=== PATIENT | male | born 1950 | race Caucasian/White ===

== ENCOUNTER 2018-01-27 21:47 | Emergency (ER) | payer MEDICARE, BC ==
[~2018-01-27] VITALS: Ht 180.3 cm; Wt 126.8 kg
[~2018-01-27 21:47] MED LIST: ACCOLATE10 MG; ALLEGRA-D 1212 HOUR PO; ALLOPURINOL300 MG PO; ALTACE10 M1 PO; ALTACE10 MG PO; ATENOLOL100 MG PO; AUGMENTIN500TAB PO; AUGMENTIN875TAB PO; CARDURA1 MG PO; CARISOPRODOL350 MG PO; CEPHALEXIN500 MG PO; CLONIDINE0.1 MG PO; CYCLOBENZAPR10 MG PO; DICLOFENAC SODI75 MG PO; DICLOFENAC75 MG PO; FARXIGA5 MG PO; FLEXERIL5 MG PO; FLONASE NASAL50 MCG; GLIPIZIDE10 M2 PO; GLIPIZIDE5 MG PO; HCTZ; HCTZ PO; JANUVIA100 MG PO; LOPRESSOR 550 MG/TAB PO; LOPRESSOR25 MG PO; LOTRISONE TOP; MAXZIDE-2537.5 MG/TA PO; MEDDOSEPAK PO; MELOXICAM15 MG PO; MELOXICAM7.5 MG PO; METFORMIN500 MG PO; METOPROL TAR25 MG PO; METOPROLOL TART50 MG OR; MOTRIN800 MG OR; ONE TOUCH ULTRA 100 XX; ONE TOUCH ULTRA 50 XX; ONGLYZA5 MG PO; PLAVIX75 MG PO; PRANDIN1 MG PO; PRAVACHOL20 MG PO; PRAVASTATIN20 MG; PRAVASTATIN20 MG PO; PRAVASTATIN40 MG PO; PREDNISONE20 MG PO; RAMIPRIL2.5 MG PO; SOMA350 MG PO; TIZANIDINE HCL4 M1 PO; TRIAMT; TRIAMT PO; ZYRTEC-D ALG PO
[2018-01-27 22:42] LABS: HEMATOCRIT 50.4 % (39.0-50.0); HEMOGLOBIN 16.4 g/dl (14.0-18.0); IMMATURE GRANULOCYTES 0.3 % (0.0-1.0); MEAN CELL VOLUME 98.2 fL CALC (80.0-100.0); MEAN CORPUSCULAR HGB CONC 32.5 g/L CALC (32.0-36.0); NEUT# 7.59 thou/uL (1.82-7.42); RED BLOOD COUNT 5.13 mill/uL (4.70-6.10); RED CELL DISTRI WIDTH 12.6 % (11.5-15.5)
[2018-01-27 22:55] LABS: ALBUMIN 4.2 g/dL (3.2-5.0); BILIRUBIN, TOTAL 0.5 mg/dL (0.0-1.4); CREATININE 1.8 mg/dL (0.7-1.3); POTASSIUM 5.3 mmol/l (3.5-5.1); TOTAL PROTEIN 6.9 g/dL (6.3-8.2)
[2018-01-27] MEDS ORDERED: FLEXERIL PO (23:13)
[2018-01-27] MEDS ORDERED: ULTRAM50 M1 PO (23:13)
[2018-01-27 23:29] VITALS: BP 150/69
== END 2018-01-27 23:30 | disposition home or self-care (01) ==
LOC: ED 21:47
PROVIDERS: Emergency Medicine
DX: R51 Headache (principal); I11.9 Hypertensive heart disease without heart failure; M54.2 Cervicalgia; E11.9 Type 2 diabetes mellitus without complications; G89.29 Other chronic pain; M54.9 Dorsalgia, unspecified

== ENCOUNTER 2018-08-29 08:54 | Observation (INO) | payer MEDICARE, OTHER ==
[~2018-08-29] VITALS: Ht 180.3 cm; Wt 123.2 kg
[~2018-08-29 08:54] MED LIST changes: +FLEXERIL PO; +ULTRAM50 M1 PO
--- NOTE | 2018-08-29 08:54 | NUR ---
TO ROOM 13 VIA EMS
--- NOTE | 2018-08-29 09:00 | NUR ---
PT C/O 3 DAY HX OF HYPERTENSION. PT DENIES ANY CP AT THIS TIME OR SOB. PT REPORTS DULL HEADACHE TO OCCIPITAL AREA OF HEAD. PT DENIES ANY DIZZINESS OR BLURRY VISION AT THIS TIME. BP 212/86 AT THIS TIME. BILATERAL LS CLEAR AT THIS TIME. PT RESTING COMFORTABLY IN STRETCHER IN NAD. CALL MCCURDY WTIHIN REACH.
[2018-08-29 09:20] LABS: HEMATOCRIT 51.2 % (39.0-50.0); IMMATURE GRANULOCYTES 0.5 % (0.0-5.0); MEAN CELL VOLUME 96.6 fL CALC (80.0-100.0); MEAN CORPUSCULAR HGB 32.1 pG CALC (26.0-32.0); MEAN CORPUSCULAR HGB CONC 33.2 g/L CALC (32.0-36.0); NEUT# 5.44 thou/uL (1.82-7.42); RED BLOOD COUNT 5.3 mill/uL (4.70-6.10); RED CELL DISTRI WIDTH 12.7 % (11.5-15.5)
--- NOTE | 2018-08-29 09:26 | NUR ---
PT MEDICATED PER ORDERED FOR BP 211/86.
[2018-08-29 09:39] LABS: ANION GAP 16 (6-22 (CALC)); BUN 29 mg/dL (8-23); BUN/CREATININE RATIO 16 (12-20 (CALC)); CARBON DIOXIDE 23 mmol/l (22-30); CHLORIDE 104 mmol/l (95-108); CREATININE 1.8 mg/dL (0.7-1.3); GFR 37 ML/MIN (>=60 (CALC)); GFR FOR AFR.AMER. 45 ML/MIN (>=60 (CALC)); POTASSIUM 5.1 mmol/l (3.5-5.1); SODIUM 138 mmol/l (137-146)
--- NOTE | 2018-08-29 10:00 | NUR ---
PT RETURNED FROM CT SCAN AND IS RESTING COMFORTABLY IN STRETCHER IN NAD. PT DENIES ANY NEEDS.
[2018-08-29] MEDS ORDERED: GLIPIZIDE5 MG PO (10:44)
--- NOTE | 2018-08-29 10:45 | NUR ---
PT AMBUALTED TO BATHROOM WITH A STEADY GAIT. PT DENIES ANY PAIN IN HIS HEAD AT THIS TIME AND IS AWARE OF PENDING RESULTS. CALL MCCURDY WITHIN REACH.
[2018-08-29] MEDS ORDERED: PRANDIN1 MG PO (10:46)
--- NOTE | 2018-08-29 10:57 | NUR ---
Chemistry Associate spoke with Dr. Morales and advised that there is no MCG/INDICIA criteria to darrell Patient - MD states he spoke with Dr. Reed - Patient's PCP - and Dr. Reed stated he wanted Patient admitted. Dr. Morales stated he would call Dr. Reed back and leave the decision to admit up to Dr. Reed - Alberto, bond underwriter stated that there was no criteria to admit Patient, but that it was up to the MD to decide if Patient should be admitted.
--- NOTE | 2018-08-29 11:01 | NUR ---
Received call back from Dr. Carmen james stated he just spoke with Dr. Reed and Dr. Reed is afraid Patient may have a stroke if not admitted under observation, so Patient will be admitted under observational status
--- NOTE | 2018-08-29 11:09 | NUR ---
MD AT BEDSIDE TO DISCUSS PLAN FOR ADMISSION.
--- NOTE | 2018-08-29 11:35 | NUR ---
INITIAL ADMISSION ORDERS OBTAINED FROM DR MCCORMACK BY PHONE AND READ BACK. HE WILL PLACE FURTHER ORSERS
--- NOTE | 2018-08-29 11:37 | NUR ---
CALL PLACED TO MS, NURSE TAKING PT WILL CALL BACK FOR REPORT.
--- NOTE | 2018-08-29 12:02 | NUR ---
REPORT CALLED TO VIRA IBANEZ.
--- NOTE | 2018-08-29 12:22 | NUR ---
Admission Note Report Given to: MARCELLE Transported by: X Wheelchair Stretcher Transported with: X Nurse Transporter X Patent IV O2 X Machine Operator Transplanter PT TO ROOM 269 VIA WHEELCHAIR, TELE MONITOR INTACT. CARE RELINQUISHED TO VIRA IBANEZ.
--- NOTE | 2018-08-29 12:25 | NUR ---
PT ARRIVED TO FLOOR VIA WHEELCHAIR ACCOMPANIED BY VIRA MG. PT AMBULATES WITH STEADY GAIT. ALERT AND ORIENTED. PT ORIENTED TO ROOM AND EQUIPMENT. PT'S PRESENT. PLAN OF CARE REVIEWED. CALL LIGHT REVIEWED AND IN REACH. DENIES PAIN. REPORTING OF CONCERNS ENCOURAGED. PT STATES UNDERSTANDING.
[2018-08-29 12:37] VITALS: BP 186/74
--- NOTE | 2018-08-29 13:00 | NUR ---
DR. MCCORMACK IN TO SEE PT.
[2018-08-29 13:20] VITALS: BP 165/72
--- NOTE | 2018-08-29 13:47 | NUR ---
PT LEFT FLOOR VIA WHEELCHAIR ACCOMPANIED BY VOLUNTEER FOR RENAL US.
[2018-08-29 14:40] VITALS: BP 151/62
[2018-08-29 16:15] VITALS: BP 160/63
--- NOTE | 2018-08-29 16:26 | NUR ---
PT SITTING ON SIDE OF BED. PRESENT. DENIES ANY COMPLAINTS. CALL LIGHT USE REINFORCED.
[2018-08-29 19:40] VITALS: BP 183/81
--- NOTE | 2018-08-29 19:48 | NUR ---
REPORT RECIEVED FROM NURSE VIRA IBANEZ. PT SITTING IN BED. A/OX3. ABLE TO VIOCE NEEDS. NO PAIN OR DISTRESS NOTED. POC DISCUSSED. PT VOICED UNDERSTANDING.CALL LIGHT WITHIN REACH. BED IN LOWEST POSITION. WILL CONTINUE TO MONITOR.
[2018-08-30 00:16] VITALS: BP 166/75
--- NOTE | 2018-08-30 02:50 | NUR ---
PT REQUESTED TO TAKE GOWN OFF . ASSISTED PT TO TAKE GOWN OFF. PT DENIES PAIN AT THIS MOMENT. NO DISTRESS NOTED. BED IN LOWEST POSITON.CALL LIGHT IN REACH. WILL CONTINUE TO MONITOR.
[2018-08-30 04:23] VITALS: BP 157/73
[2018-08-30 06:49] LABS: HEMATOCRIT 48.4 % (39.0-50.0); HEMOGLOBIN 15.8 g/dl (14.0-18.0); IMMATURE GRANULOCYTES 0.4 % (0.0-5.0); MEAN CELL VOLUME 98.4 fL CALC (80.0-100.0); MEAN CORPUSCULAR HGB 32.1 pG CALC (26.0-32.0); MEAN CORPUSCULAR HGB CONC 32.6 g/L CALC (32.0-36.0); NEUT# 4.7 thou/uL (1.82-7.42); RED BLOOD COUNT 4.92 mill/uL (4.70-6.10)
--- NOTE | 2018-08-30 07:00 | NUR ---
SHIFT REPORT FROM RONN, IZZY SLEEPING BUT AWAKENED TO VERBAL STIMULI, NO C/O DISCOMFORT AT THIS TIME, TELE MONITOR IN PLACE, CALL MCCURDY IN REACH.
[2018-08-30 07:07] LABS: ALBUMIN 3.7 g/dL (3.2-5.0); BILIRUBIN, TOTAL 0.6 mg/dL (0.0-1.4); CREATININE 1.8 mg/dL (0.7-1.3); POTASSIUM 4.8 mmol/l (3.5-5.1)
[2018-08-30 07:08] LABS: CHOLESTEROL HDL RATIO 4.7 (<4.4 (CALC))
[2018-08-30 08:14] VITALS: BP 150/57
[2018-08-30 08:28] VITALS: BP 150/57
[2018-08-30] MEDS ORDERED: CARDIZEM CD 180 PO (08:41)
[2018-08-30] MEDS ORDERED: CLONIDINE0.2 MG PO (08:41)
--- NOTE | 2018-08-30 09:15 | NUR ---
DR MCCORMACK HERE ROUNDING, DISCUSSED PLAN OF CARE WITH PT AND SPOUSE, BOTH STATED UNDERSTANDING, WILL CONTINUE TO MONITOR.
--- NOTE | 2018-08-30 10:12 | NUR ---
Discharge instructions given. Patient verbalizes understanding of same. Discharged in good condition via Wheelchair to Home with spouse. All belongings sent with pt.
== END 2018-08-30 10:09 | disposition home or self-care (01) ==
LOC: ED 08:54 → ED-I 10:50 → ED 11:02 → MS2 11:03
PROVIDERS: Family Medicine; ADMIT Internal Medicine Geriatric Medicine; ATTEND Internal Medicine Geriatric Medicine
DX: I10 Essential (primary) hypertension (principal); E11.9 Type 2 diabetes mellitus without complications; E78.5 Hyperlipidemia, unspecified; E66.9 Obesity, unspecified; M19.90 Unspecified osteoarthritis, unspecified site; M62.838 Other muscle spasm; M10.9 Gout, unspecified; Z68.37 Body mass index [BMI] 37.0-37.9, adult; I70.1 Atherosclerosis of renal artery

== ENCOUNTER 2019-10-25 | Emergency (ER) | payer MEDICARE, OTHER ==
[~2019-10-25] MED LIST changes: +CARDIZEM CD 180 PO; +CLONIDINE0.2 MG PO
[2019-10-25] MEDS ORDERED: TESSALON PER100 MG PO (16:40)
== END 2019-10-25 16:55 | disposition home or self-care (01) ==
DX: R05 Cough (principal); E11.9 Type 2 diabetes mellitus without complications; I10 Essential (primary) hypertension

== ENCOUNTER 2021-01-24 14:24 | Emergency (ER) | payer MEDICARE, OTHER ==
[~2021-01-24] VITALS: Ht 180.3 cm; Wt 113.6 kg
[~2021-01-24 14:24] MED LIST changes: +TESSALON PER100 MG PO
[2021-01-24 15:10] LABS: HEMOGLOBIN 15.6 g/dl (14.0-18.0); IMMATURE GRANULOCYTES 0.4 % (0.0-5.0); MEAN CELL VOLUME 96.8 fL CALC (80.0-100.0); MEAN CORPUSCULAR HGB 30.8 pG CALC (26.0-32.0); MEAN CORPUSCULAR HGB CONC 31.8 g/dL CAL (32.0-36.0); NEUT# 7.35 thou/uL (1.82-7.42); RED BLOOD COUNT 5.06 mill/uL (4.70-6.10); RED CELL DISTRI WIDTH 12.8 % (11.5-15.5)
[2021-01-24 15:24] LABS: ALBUMIN 4.1 g/dL (3.2-5.0); ANION GAP 12 (6-22 (CALC)); BILIRUBIN, TOTAL 0.4 mg/dL (0.0-1.4); BUN 36 mg/dL (8-23); BUN/CREATININE RATIO 14 (12-20 (CALC)); CARBON DIOXIDE 26 mmol/l (22-30); CHLORIDE 103 mmol/l (95-108); CREATININE 2.6 mg/dL (0.7-1.3); GFR 24 ML/MIN (>=60 (CALC)); GFR FOR AFR.AMER. 30 ML/MIN (>=60 (CALC)); POTASSIUM 4.8 mmol/l (3.5-5.1); SGOT/AST 32 u/l (19-48); SODIUM 137 mmol/l (137-146)
[2021-01-24 15:33] LABS: ALKALINE PHOSPHATASE 99 u/l (38-126); TOTAL PROTEIN 7.4 g/dL (6.3-8.2)
[2021-01-24 16:13] LABS: ACT PARTIAL THROMBO TIME 22.8 SECONDS (20.0-32.5); PROTHROMBIN TIME 10.3 SECONDS (9.0-12.5)
[2021-01-24] MEDS ORDERED: CARDIZEM30 MG PO (16:34)
[2021-01-24] MEDS ORDERED: ELIQUIS5 MG PO (16:56)
[2021-01-24 17:37] VITALS: BP 168/74
== END 2021-01-24 17:39 | disposition home or self-care (01) ==
LOC: ED 14:24
PROVIDERS: Family Medicine
DX: I48.91 Unspecified atrial fibrillation (principal); I10 Essential (primary) hypertension; E11.9 Type 2 diabetes mellitus without complications; E78.5 Hyperlipidemia, unspecified; M10.9 Gout, unspecified; Z79.84 Long term (current) use of oral hypoglycemic drugs

== ENCOUNTER 2021-02-13 12:25 | Observation (INO) | payer MEDICARE, OTHER ==
[2021-02-13] VITALS (11 sets, daily range): BP systolic 129–158; BP diastolic 56–79
[~2021-02-13] VITALS: Ht 180.3 cm; Wt 116.8 kg
[~2021-02-13 12:25] MED LIST changes: +CARDIZEM30 MG PO; +ELIQUIS5 MG PO
--- NOTE | 2021-02-13 12:44 | NUR ---
PATIENT TO ROOM FOR TRIAGE. 1245: PHYSICIAN TO BEDSIDE TO [place]. 12:46 STROKE ALERT CALLED, PATIENT TRANSFERRED TO CT.
[2021-02-13] MEDS ORDERED: HYDRALAZINE50 MG PO (12:57)
[2021-02-13] MEDS ORDERED: OZEMPIC2 MG/1.5 M SC (12:58)
[2021-02-13 13:04] LABS: HEMATOCRIT 47.4 % (39.0-50.0); HEMOGLOBIN 15.1 g/dl (14.0-18.0); IMMATURE GRANULOCYTES 0.4 % (0.0-5.0); MEAN CELL VOLUME 96.9 fL CALC (80.0-100.0); MEAN CORPUSCULAR HGB 30.9 pG CALC (26.0-32.0); MEAN CORPUSCULAR HGB CONC 31.9 g/dL CAL (32.0-36.0); NEUT# 6.81 thou/uL (1.82-7.42); RED BLOOD COUNT 4.89 mill/uL (4.70-6.10); RED CELL DISTRI WIDTH 13.1 % (11.5-15.5)
[2021-02-13 13:27] LABS: ALKALINE PHOSPHATASE 82 u/l (38-126); ANION GAP 13 (6-22 (CALC)); BILIRUBIN, TOTAL 0.3 mg/dL (0.0-1.4); BUN 43 mg/dL (8-23); BUN/CREATININE RATIO 15 (12-20 (CALC)); CARBON DIOXIDE 25 mmol/l (22-30); CHLORIDE 102 mmol/l (95-108); CREATININE 2.9 mg/dL (0.7-1.3); ETHYL ALCOHOL 0 mg/dl (0-30); GFR 21 ML/MIN (>=60 (CALC)); GFR FOR AFR.AMER. 26 ML/MIN (>=60 (CALC)); LIPASE 82 u/l (23-300); MAGNESIUM 1.8 mg/dL (1.6-2.3); POTASSIUM 4.4 mmol/l (3.5-5.1); SGOT/AST 28 u/l (19-48); SODIUM 136 mmol/l (137-146); TOTAL PROTEIN 6.9 g/dL (6.3-8.2)
[2021-02-13 13:31] LABS: ACT PARTIAL THROMBO TIME 23.9 SECONDS (20.0-32.5); INTERNATIONAL NORMALIZED RATIO 1.1 RATIO (0.7-1.3); PROTHROMBIN TIME 10.7 SECONDS (9.0-12.5)
--- NOTE | 2021-02-13 13:45 | NUR ---
PATIENT BACK TO ROOM 16 BY THIS NURSE.
--- NOTE | 2021-02-13 14:00 | NUR ---
CARDENE DRIP STARTED AT 5 MG/HR.
--- NOTE | 2021-02-13 14:15 | NUR ---
BP DECREASED TO 150/90. CARDENE DRIP STOPPED
[2021-02-13 14:44] LABS: URINE BILIRUBIN - DIPSTICK NEGATIVE (NEGATIVE); URINE BLOOD DIPSTICK NEGATIVE (NEGATIVE); URINE COLOR YELLOW; URINE GLUCOSE - DIPSTICK NEGATIVE (NEGATIVE); URINE KETONE NEGATIVE (NEGATIVE); URINE LEUK ESTERASE TRACE (NEGATIVE); URINE NITRITE - DIPSTICK NEGATIVE (Negative); URINE PROTEIN - DIPSTICK 30 mg/dL (NEG-TRACE); URINE SPECIFIC GRAVITY 1.015; URINE UROBILINOGEN - DIPSTICK 0.2 E.U./dL (0.2)
[2021-02-13 14:52] LABS: URINE WBC 0-2 WBC/hpf (0-5)
--- NOTE | 2021-02-13 15:05 | NUR ---
BP 203.98. CARDENE STARTED AGAIN AT 2.5 MG/HR. MONITORING CLOSELY. PATIENT DENIES ANY COMPLAINTS OR NEEDS AT THISITME. SPOUSE AT BEDSIDE, WARM BLANKETS PROVIDED.
[2021-02-13 15:34] LABS: CHOLESTEROL HDL RATIO 4.6 (<4.4 (CALC))
--- NOTE | 2021-02-13 16:06 | NUR ---
REPORT CALLED TO VIRA VILLEGAS. ALL QUESTIONS ANSWERED.
--- NOTE | 2021-02-13 17:56 | NUR ---
PT ARRIVES FROM ER VIA STRETCHER ACCOMPANIED BY PROSPER CONSTANTINO. PT IS ALERT AND ORIENTED X 3, AMBULATORY. NO NEURO DEFICIT NOTED. ADMISSION ASSESSMENT COMPLETED, MEAL TRAY BROUGHT FOR PT.
--- NOTE | 2021-02-13 19:58 | NUR ---
CONTACTED DR LOVE FOR PARAMETERS FOR CARDENE DRIP, SBP LESS THAN 160 MMHG ORDERTED.
--- NOTE | 2021-02-13 20:09 | NUR ---
ICED WATER PROVIDED. PATIENT LAYS SEMI ABREU'S, NO ACUTE DISTRESS SHOWN. CALL LIGHT WITHIN REACH.
--- NOTE | 2021-02-13 20:28 | NUR ---
NEW BAG OF CARDENE DRIP INFUSING, DRIP WEANED TO 2.5 MG/HR, VS SET TO EVERY 15 MIN. WILL CONTINUE TO MONITOR.
--- NOTE | 2021-02-13 22:00 | NUR ---
PATIENT ABLE TO TOLERATE MEDICATIONS. CARDENE DRIP ON HOLD, BP 130'S SYSTOLIC. WILL CONTINUE TO MONITOR. NO ACUTE DISTRESS SHOWN. BS 117 MG/DL TONIGHT, DOES HAVE A SNACK AT BEDSIDE, DID ENCOURAGE TO EAT HIS SNACK.
[2021-02-14] VITALS (14 sets, daily range): BP systolic 131–182; BP diastolic 55–90
--- NOTE | 2021-02-14 00:53 | NUR ---
PATIENT LAYS ON HIS RIGHT SIDE, NO ACUTE DISTRESS SHOWN, AWAKENS EASILY WITH VERBAL STIMULI. REQUESTS PILLOW, PROVIDED.
--- NOTE | 2021-02-14 05:10 | NUR ---
PATIENT LAYS IN SEMI FOWLERT'S, IS AWAKE, WATCHES TV. AFEBRILE, URINAL EMPTIED, NO COMPLAINT OR NEEDS AT THIS TIME.
--- NOTE | 2021-02-14 05:59 | NUR ---
label maker in room for am labs.
--- NOTE | 2021-02-14 06:20 | NUR ---
PATIENT ABLE TO WALK TO RESTROOM TO HAVE BM. DENIES DIZZINESS.
[2021-02-14 06:25] LABS: CHOLESTEROL HDL RATIO 4.2 (<4.4 (CALC)); CREATININE 2.7 mg/dL (0.7-1.3); MAGNESIUM 1.8 mg/dL (1.6-2.3); POTASSIUM 4.8 mmol/l (3.5-5.1)
--- NOTE | 2021-02-14 06:45 | NUR ---
REPORT RECEIVED FROM MARCELLA CONSTANTINO. CARE ASSUMED.
--- NOTE | 2021-02-14 07:15 | NUR ---
PT SITTING UP ON SIDE OF BED AWAKE. PT IS ALERT AND ORIENTED X3. SHIFT ASSESSMENT COMPLETED AT THIS TIME. IV PATENT X1. CALL LIGHT IN REACH. WILL CONTINUE TO MONITOR.
--- NOTE | 2021-02-14 08:28 | NUR ---
SPEECH THERAPY AT BEDSIDE AT THIS TIME
--- NOTE | 2021-02-14 09:04 | NUR ---
RT AT BEDSIDE FOR REPEAT EKG
--- NOTE | 2021-02-14 10:05 | NUR ---
PT RESTING IN BED WATCHING TV. RESP ARE EVEN AND UNLABORED. NO DISTRESS NOTED. CALL LIGHT IN REACH. WILL CONTINUE TO MONITOR.
--- NOTE | 2021-02-14 12:15 | NUR ---
dr crawford at bedside at this time.
--- NOTE | 2021-02-14 16:54 | NUR ---
PT STATES THAT HE WASNT TO LEAVE AMA. EXPLAINED THAT HIS MRI WOULD BE DONE IN 30 MINUTES. PT STATES THAT HE CAN HAVE IT DONE OUT PATIENT. PT IS ALERT AND OREINTED X3. SPOUSE IN AGREEMENT WITH PATIENT LEAVING AMA. DR FINN NOTIFIED.
--- NOTE | 2021-02-14 17:00 | NUR ---
Patient decides to leave AMA. Multiple attempts made to ecourage patient to remain here for continued treatment. Explained to patient all risks of leaving against medical advice including . Pt verbalized understanding of all risks. Pt also encouraged to return to [facility] at any time, especially if symptoms continue or become worse. Pt verbalized understanding.
--- NOTE | 2021-02-14 17:35 | NUR ---
Patient went to patient's room to evaluate patient. Patient was being cleaned by the WELLNESS GUIDE. Patient will be rescheduled for physical therapy evaluation for another time.
== END 2021-02-14 16:55 | disposition left against medical advice (07) ==
LOC: ED 12:25 → ED-I 14:46 → ED 15:03 → ICU 15:04
PROVIDERS: ADMIT Internal Medicine; ATTEND Internal Medicine
DX: R42 Dizziness and giddiness (principal); I16.1 Hypertensive emergency; R79.89 Other specified abnormal findings of blood chemistry; N17.9 Acute kidney failure, unspecified; I12.9 Hypertensive chronic kidney disease with stage 1 through stage 4 chronic kidney disease, or unspecified chronic kidney disease; E11.22 Type 2 diabetes mellitus with diabetic chronic kidney disease; N18.4 Chronic kidney disease, stage 4 (severe); E87.1 Hypo-osmolality and hyponatremia; G89.29 Other chronic pain; E86.9 Volume depletion, unspecified; E78.5 Hyperlipidemia, unspecified; M10.9 Gout, unspecified; M54.9 Dorsalgia, unspecified; E87.2 Acidosis; R80.9 Proteinuria, unspecified; Z79.84 Long term (current) use of oral hypoglycemic drugs; Z20.822 Contact with and (suspected) exposure to COVID-19
CPT/HCPCS: Q9967

== ENCOUNTER 2024-04-07 23:25 | Emergency (ER) | payer MEDICARE, OTHER ==
[~2024-04-07] VITALS: Ht 180.3 cm; Wt 111.0 kg
[~2024-04-07 23:25] MED LIST changes: +HYDRALAZINE50 MG PO; +OZEMPIC2 MG/1.5 M SC; +SPS15 GM/601 PO
[2024-04-07] MEDS ORDERED: cloNIDine HCL 0.1 MG/TAB PO ONE (23:35)
[2024-04-07] MEDS ORDERED: LABETALOL HCL 20 MG/ 4 ML CARTRG IV ONE (23:35)
[2024-04-07 23:51] LABS: BASO% 0.4 % (0-3); EOS% 3.9 % (0-8); HEMATOCRIT 40.3 % (39.0-50.0); IMMATURE GRANULOCYTES 0.1 % (0.0-5.0); LYMPH% 17.6 % (15-41); MEAN CELL VOLUME 100.8 fL CALC (80.0-100.0); MEAN CORPUSCULAR HGB 32.5 pG CALC (26.0-32.0); MEAN CORPUSCULAR HGB CONC 32.3 g/dL CAL (32.0-36.0); MONO% 9.6 % (2-13); NEUT# 5.41 thou/uL (1.82-7.42); NEUT% 68.4 % (42-76); RED CELL DISTRI WIDTH 12.2 % (11.5-15.5)
[2024-04-07 23:56] VITALS: BP 133/59
[2024-04-08] VITALS (14 sets, daily range): BP systolic 136–204; BP diastolic 68–100
[2024-04-08 00:07] LABS: ALBUMIN 4.1 g/dL (3.2-5.0); BILIRUBIN, TOTAL 0.5 mg/dL (0.2-1.3); POTASSIUM 4.9 mmol/l (3.5-5.1); TOTAL PROTEIN 6.5 g/dL (6.3-8.2)
[2024-04-08 00:14] LABS: CREATININE 5.5 mg/dL (0.7-1.3)
[2024-04-08 01:14] LABS: URINE BILIRUBIN - DIPSTICK Negative (NEGATIVE); URINE BLOOD DIPSTICK Negative (NEGATIVE); URINE GLUCOSE - DIPSTICK 100 mg/dL (NEGATIVE); URINE KETONE Negative (NEGATIVE); URINE LEUK ESTERASE Negative (NEGATIVE); URINE NITRITE - DIPSTICK Negative (Negative); URINE PROTEIN - DIPSTICK 30 mg/dL (NEG-TRACE); URINE SPECIFIC GRAVITY 1.015; URINE UROBILINOGEN - DIPSTICK 0.2 E.U./dL (0.2)
[2024-04-08 01:15] LABS: URINE COLOR Yellow
[2024-04-08 01:26] LABS: URINE BACTERIA FEW hpf; URINE EPITHELIAL CELLS FEW EPI/hpf (0-FEW); URINE RBC 0-2 RBC/hpf (0-5)
[2024-04-08] MEDS ORDERED: hydrALAZINE HCL 20 MG/ML VIAL(1 ML) IV ONE (01:35)
[2024-04-08] MEDS ORDERED: LOPRESSOR50 M1 PO (01:39)
[2024-04-08] MEDS ORDERED: OXYMETAZOLINE HCL 15 ML/BTL ONE (01:40)
== END 2024-04-08 02:02 | disposition home or self-care (01) ==
LOC: ED 23:25
PROVIDERS: Family Medicine
DX: I12.0 Hypertensive chronic kidney disease with stage 5 chronic kidney disease or end stage renal disease (principal); E11.22 Type 2 diabetes mellitus with diabetic chronic kidney disease; N18.5 Chronic kidney disease, stage 5; E78.5 Hyperlipidemia, unspecified; Z79.85 Long-term (current) use of injectable non-insulin antidiabetic drugs; Z79.84 Long term (current) use of oral hypoglycemic drugs